=== PATIENT | female | born 1930 | race Two or more races ===

== ENCOUNTER 2020-06-05 12:52 | Inpatient (IN) | payer OTHER ==
[2020-06-05 13:53] LABS: HEMOGLOBIN 11.4 GM/dl (10.7-15.3); MCH 28.4 pg (25.7-33.7); RBC 4.03 M/mm3 (3.60-5.2); WHITE BLOOD COUNT 7.6 K/mm3 (4.0-10.8)
[2020-06-05 13:56] LABS: BASO % 3.6 % (0-2.0); EOS % 1.8 % (0-4.5); HEMATOCRIT 36.2 % (32.4-45.2); LYMPH % 15.2 % (8-40); MCHC 31.5 g/dl (32.0-36.0); MEAN CELL VOLUME 89.9 fl (80-96); MEAN PLT VOLUME 8.7 fl (7.5-11.1); MONO % 7.8 % (3.8-10.2); NEUT % 71.6 % (42.8-82.8); PLATELET COUNT 245 K/MM3 (134-434); RDW 17.6 % (11.6-15.6)
[2020-06-05 14:10] LABS: ALBUMIN 3.7 g/dl (3.4-5.0); BILIRUBIN,TOTAL 0.4 mg/dl (0.2-1); CALCIUM 9.5 mg/dl (8.5-10); CREATININE 1.5 mg/dl (0.55-1.3); POTASSIUM 4.1 mmol/L (3.5-5.1); TOT PROT 6.3 g/dl (6.4-8.2)
--- NOTE | 2020-06-05 14:49 | PDOC ---
History of Present Illness - General Chief Complaint: Shortness of Breath Stated Complaint: SOB Time Seen by Provider: 06/05/20 12:54 History Source: Patient Exam Limitations: No Limitations - History of Present Illness Initial Comments: 06/05/20 14:44 89 yo F with h/o chf, htn hld prior clots on eliquis here wiht c/o sob and plueritic pain . pain is sharp, right sided, worse wtih deep breathing. has been feeling sob for 2 days. no cough no f/c no new leg swelling or pain. no rash. 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 no myalgia. no other complaints. no known covid exposure or h/o covid 06/05/20 14:45 Past History - Medical History Allergies/Adverse Reactions: Allergies Allergy/AdvReac Type Severity Reaction Status Date / Time Penicillins Allergy Intermediate Difficulty Verified 06/05/20 12:57 Breathing Home Medications: Ambulatory Orders Allopurinol [Zyloprim -] 100 mg PO DAILY 06/05/20 Apixaban [Eliquis] 5 mg PO BID 06/05/20 Ezetimibe 10 mg PO DAILY 06/05/20 Furosemide 20 mg PO DAILY 06/05/20 Levothyroxine [Synthroid -] 25 mcg PO DAILY 06/05/20 Linagliptin [Tradjenta] 5 mg PO DAILY 06/05/20 Losartan Potassium 25 mg PO DAILY 06/05/20 Nebivolol HCl [Bystolic] 20 mg PO BID 06/05/20 Pantoprazole Sodium [Protonix -] 40 mg PO DAILY 06/05/20 Simvastatin 20 mg PO DAILY 06/05/20 Timolol Maleate 0.5% Gfs [Timoptic Xe 0.5%] 5 ml OP BID 06/05/20 COPD: No - Reproductive History Is Patient Now?: No - Psycho-Social/Smoking History Smoking History: Never smoked Have you smoked in the past 12 months: No Information on smoking cessation initiated: No - Substance Abuse Hx (Audit-C & DAST Scrn) How often the patient has a drink containing alcohol: Never Score: In Men: 4 or > Positive; In Women: 3 or > Positive: 0 Screen Result (Pos requires Nsg. Audit-10AR): Negative In the last yr the pt used illegal drug/Rx for NonMed reason: No Score: Yes response is considered Positive: 0 Screen Result (Positive result requires Nsg. DAST-10): Negative Review of Systems - Review of Systems Constitutional: No: Chills, Fever HEENTM: No: Eye Pain Respiratory: Yes: Shortness of Breath. No: Cough, Orthopnea Cardiac (ROS): Yes: Chest Pain ABD/GI: No: Nausea, Poor Fluid Intake : No: Burning, Dysuria, Discharge Musculoskeletal: No: Back Pain, Joint Pain, Muscle Weakness Integumentary: No: Bruising, Erythema Neurological: No: Headache, Paresthesia Hematologic/Lymphatic: Yes: Blood Clots All Other Systems: Reviewed and Negative *Physical Exam - Vital Signs Last Vital Signs Temp Pulse Resp BP Pulse Ox 99.1 F 64 20 113/68 96 06/05/20 12:53 06/05/20 14:29 06/05/20 14:29 06/05/20 14:29 06/05/20 14:29 - Physical Exam 06/05/20 14:47 awake alert lungs with crackles at bases. normal effort. pulse ox 94 - 98% RA. no retractions. heart irreg , no mrg abd soft nt nd ext wwp. no noted peripheral edema. 2+ dp/ pt pulses bilat. nuero alert oriented x 3. Heart Score/ECG Review #1 General ECG Interpretation: Normal Rate, Normal Intervals, No acute ischemic changes Compared to previous ECG there are: Other (pt with aflutter, no st elevation or depression. left axis. afib. TWI v4 - V6., I, AVL no old ekg) ED Treatment Course - LABORATORY CBC & Chemistry Diagram: 06/05/20 13:44 06/05/20 13:44 - ADDITIONAL ORDERS Additional order review: Laboratory Results 06/05/20 06/05/20 13:44 13:44 Sodium 140 Potassium 4.1 Chloride 102 Carbon Dioxide 25 Anion Gap 13 BUN 22.0 H Creatinine 1.5 H Est GFR (CKD-EPI)AfAm 35.93 Est GFR (CKD-EPI)NonAf 31.00 Random Glucose 135 H Calcium 9.5 Total Bilirubin 0.4 AST 21 ALT 11 L Alkaline Phosphatase 95 Troponin I < 0.03 Total Protein 6.3 L Albumin 3.7 06/05/20 13:44 RBC 4.03 MCV 89.9 MCHC 31.5 L RDW 17.6 H MPV 8.7 Neutrophils % 71.6 Lymphocytes % 15.2 Monocytes % 7.8 Eosinophils % 1.8 Basophils % 3.6 H - RADIOLOGY Radiology Studies Ordered: Category Date Time Status CHEST CTA [CT] Stat CT Scan 06/05/20 14:43 Ordered CXRPORT [CHEST X-RAY PORTABLE*] [RAD] Stat Radiology 06/05/20 13:21 Taken Medical Decision Making - Medical Decision Making 06/05/20 14:48 89 yo F wtih ih/o chf prior clots here with c/o sob. exertional worse with lying flat and plueritic pain. differential pe acs, chf pna, covid. plna covid swab, cxr cta chest labs trop ekg cxr wtih mild pulm vasc congestion. no effusion. no infiltrate. labs normal. ct pending. ekg with atrial fibrillation. 06/05/20 16:24 labs unremarkable. BNp 2200. cta negative for PE. no plueral effusion or pna. chornic lung disease. will admit pt diuresess. cp r/o acs. 06/05/20 16:[address] Dee, who states she has known afib, is on eliquis. and h/o chf. 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 will follow up with pt when she leaves the hosptial. Discharge - Discharge Information Problems reviewed: Yes Clinical Impression/Diagnosis: CHF (congestive heart failure), Chest pain, Flutter-fibrillation - Admission Yes - Follow up/Referral - Patient Discharge Instructions - Post Discharge Activity
[2020-06-05 14:53] LABS: N-TERMINAL BNP 2200.3 pg/ml (5-450)
[2020-06-05] MEDS ORDERED: ASPIRIN 81 MG CHEWABLE TABLETS PO ONE (16:43)
[2020-06-05] MEDS ORDERED: FUROSEMIDE 40 MG/4 ML INJECTABLE VIAL IVPUSH ONE (16:43)
[2020-06-05] MEDS ORDERED: ASPIRIN 81 MG CHEWABLE TABLETS ONE (16:49)
[2020-06-05] MEDS ORDERED: FUROSEMIDE 40 MG/4 ML INJECTABLE VIAL ONE (16:50)
--- NOTE | 2020-06-05 16:50 | CON.CARD ---
Consult Consult Specialty:: Cardiology Referred by:: Emergency Medicine Reason for Consultation:: Afib, dyspnea - History of Present Illness Chief Complaint: Chest pain, dyspnea History of Present Illness: 89 yo F with h/o chf, htn hld afib on eliquis here with c/o sob and right-sided pleuritic chest pain, dyspnea on exertion, orthopnea, denies PND, LE edema. 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 [place] known covid exposure or h/o covid, BNP elevated started diuresis. - History Source History Provided By: Patient Limitations to Obtaining History: No Limitations - Past Medical History Cardio/Vascular: Yes: AFIB, CHF, HTN, Hyperlipdemia ...: No - Smoking History Smoking history: Never smoked Have you smoked in the past 12 months: No Home Medications - Allergies Allergies/Adverse Reactions: Allergies Allergy/AdvReac Type Severity Reaction Status Date / Time Penicillins Allergy Intermediate Difficulty Verified 06/05/20 12:57 Breathing - Home Medications Home Medications: Ambulatory Orders Allopurinol [Zyloprim -] 100 mg PO DAILY 06/05/20 Apixaban [Eliquis] 5 mg PO BID 06/05/20 Ezetimibe 10 mg PO DAILY 06/05/20 Furosemide 20 mg PO DAILY 06/05/20 Levothyroxine [Synthroid -] 25 mcg PO DAILY 06/05/20 Linagliptin [Tradjenta] 5 mg PO DAILY 06/05/20 Losartan Potassium 25 mg PO DAILY 06/05/20 Nebivolol HCl [Bystolic] 20 mg PO BID 06/05/20 Pantoprazole Sodium [Protonix -] 40 mg PO DAILY 06/05/20 Simvastatin 20 mg PO DAILY 06/05/20 Timolol Maleate 0.5% Gfs [Timoptic Xe 0.5%] 5 ml OP BID 06/05/20 Review of Systems - Review of Systems Cardiovascular: reports: Chest Pain Respiratory: reports: Orthopnea, SOB, SOB on Exertion Vital Signs: Vital Signs Temperature 98.3 F 06/05/20 16:27 Pulse Rate 70 06/05/20 16:27 Respiratory Rate 20 06/05/20 16:27 Blood Pressure 117/71 06/05/20 16:27 O2 Sat by Pulse Oximetry (%) 98 06/05/20 16:27 Constitutional: Yes: No Distress, Calm, Thin Neck: Yes: Supple Respiratory: Yes: Regular, Diminished, SOB, SOB on Exertion Gastrointestinal: Yes: Normal Bowel Sounds, Soft Cardiovascular: Yes: Regular Rate and Rhythm JVD: No Carotid Bruit: No Heart Sounds: Yes: S1, S2 Murmur: Yes: Systolic Murmur, Grade 1 Edema: No - Other Data Labs, Other Data: CBC, BMP 06/05/20 13:44 06/05/20 13:44 Troponin, BNP 06/05/20 06/05/20 13:44 13:44 Troponin I < 0.03 B-Natriuretic Peptide 2200.3 H Troponin, BNP 06/05/20 06/05/20 13:44 13:44 Troponin I < 0.03 B-Natriuretic Peptide 2200.3 H Afib @ 83 LAD, IVCD Imaging - Results Chest X-ray: Report Reviewed (Mild CHF w/o effusions) Cat Scan: Report Reviewed Problem List - Problems (1) Atrial fibrillation Code(s): I48.91 - UNSPECIFIED ATRIAL FIBRILLATION Qualifiers: Atrial fibrillation type: unspecified chronic Qualified Code(s): I48.20 - Chronic atrial fibrillation, unspecified; I48.2 - Chronic atrial fibrillation (2) Hyperlipidemia associated with type 2 diabetes mellitus Code(s): E11.69 - TYPE 2 DIABETES MELLITUS WITH OTHER SPECIFIED COMPLICATION; E78.5 - HYPERLIPIDEMIA, UNSPECIFIED (3) Hypertensive heart disease Code(s): I11.9 - HYPERTENSIVE HEART DISEASE WITHOUT HEART FAILURE Qualifiers: Heart failure presence: with heart failure Heart failure type: diastolic Heart failure chronicity: acute on chronic Qualified Code(s): I11.0 - Hypertensive heart disease with heart failure; I50.33 - Acute on chronic diastolic (congestive) heart failure (4) Hypothyroidism Code(s): E03.9 - HYPOTHYROIDISM, UNSPECIFIED Qualifiers: Hypothyroidism type: unspecified Qualified Code(s): E03.9 - Hypothyroidism, unspecified (5) Chest pain Code(s): R07.9 - CHEST PAIN, UNSPECIFIED Qualifiers: Chest pain type: pleurodynia Qualified Code(s): R07.81 - Pleurodynia (6) Type 2 diabetes mellitus Code(s): E11.9 - TYPE 2 DIABETES MELLITUS WITHOUT COMPLICATIONS Qualifiers: Diabetes mellitus intermediate project manager insulin use: without intermediate project manager use Diabetes mellitus complication status: with kidney complications Diabetes mellitus complication detail: with chronic kidney disease Chronic kidney disease stage: stage 3 (moderate) Qualified Code(s): E11.22 - Type 2 diabetes mellitus with diabetic chronic kidney disease; N18.3 - Chronic kidney disease, stage 3 (moderate) (7) CKD (chronic kidney disease) Code(s): N18.9 - CHRONIC KIDNEY DISEASE, UNSPECIFIED Qualifiers: Chronic kidney disease stage: stage 3 (moderate) Qualified Code(s): N18.3 - Chronic kidney disease, stage 3 (moderate) Assessment/Plan 06/05/2020 Chest CTA: No PE, chronic lung disease w/o CHF or effusions 1. Acute on chronic diastolic heart failure 2. Persistent afib on Eliquis 3. Hypertensive heart disease with failure 4. Hypothyroidism 5. Hyperlipidemia 6. Type 2 DM 7. CKD likely P:1. IV diuresis with monitor diuretic response, renal function and electrolytes 2. Echocardiogram to assess ventricular and valve fxn, check TSH, lipid panel, Ha1c 3. Continue Eliquis 5 bid, Zetia 10 qd, Zocor 20 qhs, losartan 25 qd, Bystolic 20 bid, consider Jardiance pending Ha1c 4. Further CV evaluation as outpatient . Thank you for consultative opportunity
[2020-06-05] MEDS ORDERED: FUROSEMIDE 40 MG/4 ML INJECTABLE VIAL IVPUSH SCH (17:20)
[2020-06-05 18:14] VITALS: BMI 25.7
[2020-06-05] MEDS: EZETIMIBE 10 MG TABLET (FP) PO SCH (18:27)
[2020-06-05] MEDS: ATORVASTATIN CA 10 MG TABLET (FP) PO SCH (18:28)
[2020-06-05] MEDS ORDERED: TIMOLOL MALEATE 0.5% GFS OPHTHALMIC SOLN 5 ML BOTTLE OD SCH (22:00)
--- NOTE | 2020-06-05 22:04 | HP ---
CHIEF COMPLAINT: shortness of breath and right sided chest pain PCP: Dr. Dee [phone] HISTORY OF PRESENT ILLNESS: 89 year old female with a past medical history of diastolic congestive heart failure, hypertension, hyperlipidemia, prior history of blood clots hypothyroidism, type II DM, persistent atrial fibrillation (on eliquis) and CKD who presents with symptoms of shortness of breath and right sided pleuritic pain . Pain was described as sharp, right sided, and worse with deep breathing. She reported she has been feeling shortness of breath for the past 2 days.She reported orthopnea. She denied cough, fever, chills, malaise or leg pain or swelling. She recently moved from [place] last month. She has had no known COVID exposure or history of COVID. ER course notable for: Elevated BNP(2200)/ Acute Diastolic Congestive Heart Failure Exacerbation -seen by Cardiology and started on IV lasix and diuresing well CXR with mild pulmonary vascular congestion, no effusion, no infiltrate. Chest CTA: no pulmonary embolism, chronic lung disease w/o CHF or effusions Recent Travel: yes PAST MEDICAL HISTORY: diastolic congestive heart failure hypertensive heart disease hyperlipidemia prior history of blood clots hypothyroidism type II DM persistent atrial fibrillation CKD FAMILY HISTORY noncontributory PAST SURGICAL HISTORY: none Social History: Smoking:no Alcohol:no Drugs:no Allergies Penicillins Allergy (Intermediate, Verified 06/05/20 12:57) Difficulty Breathing HOME MEDICATIONS: Home Medications Medication Instructions Recorded Allopurinol [Zyloprim -] 100 mg PO DAILY 06/05/20 Apixaban [Eliquis] 5 mg PO BID 06/05/20 Ezetimibe 10 mg PO DAILY 06/05/20 Furosemide 20 mg PO DAILY 06/05/20 Levothyroxine [Synthroid -] 25 mcg PO DAILY 06/05/20 Linagliptin [Tradjenta] 5 mg PO DAILY 06/05/20 Losartan Potassium 25 mg PO DAILY 06/05/20 Nebivolol HCl [Bystolic] 20 mg PO BID 06/05/20 Pantoprazole Sodium [Protonix -] 40 mg PO DAILY 06/05/20 Simvastatin 20 mg PO DAILY 06/05/20 Timolol Maleate 0.5% Gfs [Timoptic 5 ml OP BID 06/05/20 Xe 0.5%] REVIEW OF SYSTEMS CONSTITUTIONAL: Absent: fever, chills, diaphoresis, generalized weakness, malaise, loss of appetite, weight change HEENT: Absent: rhinorrhea, nasal congestion, throat pain, throat swelling, difficulty swallowing, mouth swelling, ear pain, eye pain, visual changes CARDIOVASCULAR: Absent: chest pain, syncope, palpitations, irregular heart rate, lightheadedness, peripheral edema RESPIRATORY: Absent: right sided pleuritic pain, cough, shortness of breath, dyspnea with exertion, orthopnea, wheezing, stridor, hemoptysis GASTROINTESTINAL: Absent: abdominal pain, abdominal distension, nausea, vomiting, diarrhea, constipation, melena, hematochezia GENITOURINARY: Absent: dysuria, frequency, urgency, hesitancy, hematuria, flank pain, genital pain MUSCULOSKELETAL: Absent: myalgia, arthralgia, joint swelling, back pain, neck pain SKIN: Absent: rash, itching, pallor HEMATOLOGIC/IMMUNOLOGIC: Absent: easy bleeding, easy bruising, lymphadenopathy, frequent infections ENDOCRINE: Absent: unexplained weight gain, unexplained weight loss, heat intolerance, cold intolerance NEUROLOGIC: Absent: headache, focal weakness or paresthesias, dizziness, unsteady gait, seizure, mental status changes, bladder or bowel incontinence PSYCHIATRIC: Absent: anxiety, depression, suicidal or homicidal ideation, hallucinations. PHYSICAL EXAMINATION Vital Signs - 24 hr 06/05/20 06/05/20 06/05/20 12:53 14:29 16:27 Temperature 99.1 F 98.3 F Pulse Rate 87 Pulse Rate [ 64 70 Right] Respiratory 20 20 20 Rate Blood Pressure 119/84 Blood Pressure 113/68 117/71 [Left Arm] O2 Sat by Pulse 96 96 98 Oximetry (%) 06/05/20 18:04 Temperature 97.5 F L Pulse Rate 65 Pulse Rate [ Right] Respiratory 20 Rate Blood Pressure 129/54 L Blood Pressure [Left Arm] O2 Sat by Pulse 98 Oximetry (%) General no acute distress Vital sign reviewed afebrile Neuro no focal deficits awake alert oriented X3 Neck no JVD Lungs CTA nonlabored breathing effort no use of accessory muscles Heart s1s2 rate irregular Abdomen soft nontender Extremities warm to touch no pitting edema Mood calm Laboratory Results - last 24 hr 06/05/20 06/05/20 06/05/20 13:44 13:44 13:44 WBC 7.6 RBC 4.03 Hgb 11.4 Hct 36.2 MCV 89.9 MCH 28.4 MCHC 31.5 L RDW 17.6 H Plt Count 245 MPV 8.7 Absolute Neuts (auto) 5.4 Neutrophils % 71.6 Lymphocytes % 15.2 Monocytes % 7.8 Eosinophils % 1.8 Basophils % 3.6 H Sodium 140 Potassium 4.1 Chloride 102 Carbon Dioxide 25 Anion Gap 13 BUN 22.0 H Creatinine 1.5 H Est GFR (CKD-EPI)AfAm 35.93 Est GFR (CKD-EPI)NonAf 31.00 Random Glucose 135 H Calcium 9.5 Total Bilirubin 0.4 AST 21 ALT 11 L Alkaline Phosphatase 95 Creatine Kinase Troponin I < 0.03 B-Natriuretic Peptide 2200.3 H Total Protein 6.3 L Albumin 3.7 Urine Color Urine Appearance Urine pH Urine Protein Urine Glucose (UA) Urine Ketones Urine Blood Urine Nitrite Urine Bilirubin Urine Urobilinogen Ur Leukocyte Esterase 06/05/20 06/05/20 06/05/20 16:55 20:00 20:00 WBC RBC Hgb Hct MCV MCH MCHC RDW Plt Count MPV Absolute Neuts (auto) Neutrophils % Lymphocytes % Monocytes % Eosinophils % Basophils % Sodium Potassium Chloride Carbon Dioxide Anion Gap BUN Creatinine Est GFR (CKD-EPI)AfAm Est GFR (CKD-EPI)NonAf Random Glucose Calcium Total Bilirubin AST ALT Alkaline Phosphatase Creatine Kinase 37 Troponin I < 0.03 B-Natriuretic Peptide Total Protein Albumin Urine Color Yellow Urine Appearance Clear Urine pH 7.0 Urine Protein Negative Urine Glucose (UA) Negative Urine Ketones Negative Urine Blood Negative Urine Nitrite Negative Urine Bilirubin Negative Urine Urobilinogen 0.2 Ur Leukocyte Esterase Negative ASSESSMENT/PLAN: In summary Mrs. Garcia is an 89 year old female with a past medical history of diastolic congestive heart failure, hypertension, hyperlipidemia, prior history of blood clots, hypothyroidism, type II DM, persistent atrial fibrillation (on eliquis) and CKD who presented with shortness of breath associated with orthopnea and right sided pleuritic pain. CTA of chest excluded pulmonary embolism. She was found to have an elevated BNP which is consistent with an acute on chronic diastolic congestive heart failure exacerbation. She is being admitted to telemetry for further cardiac and medical management. 1. Acute on Chronic Diastolic Congestive Heart Failure Exacerbation symptomatic BNP 2200, troponin x 2 negative, CTA of chest with no PE and + cardiomegaly evaluated by Cardiology - Dr. Mcdermott received IV lasix 20 mg and continued on IV lasix 20mg daily and she is diuresing well(takes oral lasix 20 mg daily at home), will increase to IV lasix 40mg daily monitor strict I&O's monitor renal studies and electrolytes closely pending echocardiogram to evaluate LVEF and valvular anatomy 2. Hypertension controlled c/w losartan and biastolic 3. Hyperlipidemia c/w simvastatin pending lipid panel in am 4. Atrial Fibrillation rate controlled c/w beta birgit c/w eliquis 5 mg twice daily 5. Type II Diabetes Mellitus blood glucose monitoring before meals and at bedtime hold tradjenta insulin as per sliding scale consider Jardiance as recs per Cardiology, pending Hgba1c 6. Hypothyroidism c/w synthroid pending TSH 7. CKD creatinine 1.5(no prior recs to compare baseline) continue to monitor closely with IV diuresis 8. R/O COVID had recent travel follow up on COVID test maintain strict airborne and contact isolation precautions maintain oxygen saturation >90% FEN avoid IVF BMP daily, replete electrolytes as needed low sodium, ADA diet DVT Prophlaxis c/w systemic anticoagulation Family Medical History Family History: Unremarkable Visit type - Medication Review Med list reviewed for High Risk Meds patients 65 and older: Yes - Emergency Visit Emergency Visit: Yes ED Registration Date: 06/05/20 Care time: The patient presented to the Emergency Department on the above date and was hospitalized for further evaluation of their emergent condition. - New Patient This patient is new to me today: Yes Date on this admission: 06/06/20 - Critical Care Critical Care patient: No
[2020-06-05] MEDS: APIXABAN 5 MG TABLET PO SCH (22:10)
[2020-06-05] MEDS: INSULIN SLIDING SCALE (NOVOLOG) 1 VIAL SQ SCH (22:14)
[2020-06-05] MEDS: NEBIVOLOL 10 MG TABLET (FP) PO SCH (22:15)
[2020-06-06] MEDS: INSULIN SLIDING SCALE (NOVOLOG) 1 VIAL SQ SCH ×4 (06:46→21:02)
[2020-06-06] MEDS: LEVOTHYROXINE NA 25 MCG TABLET (FP) PO SCH (06:46)
--- NOTE | 2020-06-06 08:59 | PN ---
Physical Exam: SUBJECTIVE: Patient seen and examined at bedside, reports MARISCAL, and constipation,denies cp,palpitations, cough,abdominal pain, N/V/D or urinary symptoms. OBJECTIVE: Vital Signs Period Temp Pulse Resp BP Sys/Dawn Pulse Ox Last 24 Hr 97.5 F-99.1 F 62-87 20-20 93-129/54-84 96-99 GENERAL: The patient is awake, alert, and fully oriented, in no acute distress. HEAD: Normal with no signs of trauma. EYES: PERRL, extraocular movements intact, sclera anicteric, conjunctiva clear. No ptosis. ENT: Ears normal, nares patent, oropharynx clear without exudates, moist mucous membranes. NECK: Trachea midline, full range of motion, supple. LUNGS: Breath sounds equal, clear to auscultation bilaterally, no wheezes, no crackles, no accessory muscle use. HEART: Regular rate and rhythm, S1, S2 without murmur, rub or gallop. ABDOMEN: Soft, nontender, nondistended, normoactive bowel sounds, no guarding, no rebound, no hepatosplenomegaly, no masses. EXTREMITIES: 2+ pulses, warm, well-perfused, no edema. NEUROLOGICAL: Cranial nerves II through XII grossly intact. Normal speech, gait not observed. PSYCH: Normal mood, normal affect. SKIN: Warm, dry, normal turgor, no rashes or lesions noted Laboratory Results - last 24 hr 06/05/20 06/05/20 06/05/20 13:44 13:44 13:44 WBC 7.6 RBC 4.03 Hgb 11.4 Hct 36.2 MCV 89.9 MCH 28.4 MCHC 31.5 L RDW 17.6 H Plt Count 245 MPV 8.7 Absolute Neuts (auto) 5.4 Neutrophils % 71.6 Lymphocytes % 15.2 Monocytes % 7.8 Eosinophils % 1.8 Basophils % 3.6 H Sodium 140 Potassium 4.1 Chloride 102 Carbon Dioxide 25 Anion Gap 13 BUN 22.0 H Creatinine 1.5 H Est GFR (CKD-EPI)AfAm 35.93 Est GFR (CKD-EPI)NonAf 31.00 POC Glucometer Random Glucose 135 H Calcium 9.5 Total Bilirubin 0.4 AST 21 ALT 11 L Alkaline Phosphatase 95 Creatine Kinase Troponin I < 0.03 B-Natriuretic Peptide 2200.3 H Total Protein 6.3 L Albumin 3.7 Urine Color Urine Appearance Urine pH Urine Protein Urine Glucose (UA) Urine Ketones Urine Blood Urine Nitrite Urine Bilirubin Urine Urobilinogen Ur Leukocyte Esterase COVID-19 ([facility]NA) 06/05/20 06/05/20 06/05/20 13:44 16:55 20:00 WBC RBC Hgb Hct MCV MCH MCHC RDW Plt Count MPV Absolute Neuts (auto) Neutrophils % Lymphocytes % Monocytes % Eosinophils % Basophils % Sodium Potassium Chloride Carbon Dioxide Anion Gap BUN Creatinine Est GFR (CKD-EPI)AfAm Est GFR (CKD-EPI)NonAf POC Glucometer Random Glucose Calcium Total Bilirubin AST ALT Alkaline Phosphatase Creatine Kinase Troponin I < 0.03 B-Natriuretic Peptide Total Protein Albumin Urine Color Yellow Urine Appearance Clear Urine pH 7.0 Urine Protein Negative Urine Glucose (UA) Negative Urine Ketones Negative Urine Blood Negative Urine Nitrite Negative Urine Bilirubin Negative Urine Urobilinogen 0.2 Ur Leukocyte Esterase Negative COVID-19 (ANNA) Not detected 06/05/20 06/05/20 06/06/20 20:00 22:09 06:37 WBC RBC Hgb Hct MCV MCH MCHC RDW Plt Count MPV Absolute Neuts (auto) Neutrophils % Lymphocytes % Monocytes % Eosinophils % Basophils % Sodium Potassium Chloride Carbon Dioxide Anion Gap BUN Creatinine Est GFR (CKD-EPI)AfAm Est GFR (CKD-EPI)NonAf POC Glucometer 151 99 Random Glucose Calcium Total Bilirubin AST ALT Alkaline Phosphatase Creatine Kinase 37 Troponin I B-Natriuretic Peptide Total Protein Albumin Urine Color Urine Appearance Urine pH Urine Protein Urine Glucose (UA) Urine Ketones Urine Blood Urine Nitrite Urine Bilirubin Urine Urobilinogen Ur Leukocyte Esterase COVID-19 ([facility]NA) Active Medications Generic Name Dose Route Start Last Admin Trade Name Freq PRN Reason Stop Dose Admin Allopurinol 100 mg 06/06/20 10:00 Zyloprim - PO DAILY [facility] Apixaban 5 mg 06/05/20 22:00 06/05/20 22:10 Eliquis - PO 5 mg BID [facility] Administration Atorvastatin Calcium 10 mg 06/05/20 17:30 06/05/20 18:28 Lipitor - PO 10 mg DAILY [facility] Administration Ezetimibe 10 mg 06/05/20 17:30 06/05/20 18:27 Zetia - PO 10 mg DAILY [facility] Administration Furosemide 40 mg 06/06/20 10:00 Lasix Injection - IVPUSH DAILY [facility] Insulin Aspart 1 vial 06/05/20 22:00 06/06/20 06:46 Novolog Vial Sliding Scale - SQ Not Given ACHS [facility] Protocol Levothyroxine Sodium 25 mcg 06/06/20 07:00 06/06/20 06:46 Synthroid - PO 25 mcg AM [facility] Administration Losartan Potassium 25 mg 06/06/20 10:00 Cozaar - PO DAILY [facility] Nebivolol 20 mg 06/05/20 22:00 06/05/20 22:15 Bystolic - PO Not Given BID [facility] Pantoprazole Sodium 40 mg 06/06/20 10:00 Protonix - PO DAILY [facility] Timolol Maleate 74.9696 drop 06/05/20 22:00 Timoptic Xe 0.5% OD BID [facility] * Imaging CXR:Large heart , Rt shoulder replacement, cristhian cute chest pathology CTA of chest : No evidence of PE,CM with chronic lung disease, no acute pathology ASSESSMENT/PLAN: 89 year old female with a past medical history of diastolic congestive heart failure, hypertension, hyperlipidemia,prior history of blood clots, hypothyroidism, type II DM, persistent atrial fibrillation (on eliquis),gout and CKD who presented with shortness of breath associated with orthopnea and right sided pleuritic pain. PCP: Dr. Dee [phone] *Acute on Chronic Diastolic Congestive Heart Failure Exacerbation -CTA : PE ruled out , CM,no acute lung pathology -BNP 2200, -troponin x 2 negative, - Tele monitoring -cardiology Velvet Mcdermott following - Echo in AM LVEF and valvular anatomy - will cont on IV LAsix 40mg daily ( takes 20mg daily), and ARB - daily weight and I&O monitoring -monitor renal studies and electrolytes closely pending echocardiogram to evaluate LVEF and valvular anatomy *Hypertension - BP on the low side - will cont on Losartartan and Bystolic with holding parameters - will monitor BP closely * Hyperlipidemia -c/w simvastatin - will f/u on fasting lipids *Atrial Fibrillation -rate controlled -will cont on beta birgit and Eliquis *Type II Diabetes Mellitus -FS AC& HS - Insulin sliding scale -hold Tradjenta -consider Jardiance as recs per Cardiology, pending Hgba1c *Hypothyroidism -c/w synthroid -pending TSH *Hx of CKD -Cre 1.4 unknown baseline - will cont on ARB/ diuretics -will cont to monitor renal functions * Gout on Allopurinol * R/O COVID - Covid test - not detected * Constipation - added laxatives *F/E/N avoid IVF BMP daily, replete electrolytes as needed low sodium, ADA diet DVT Prophlaxis - on Eliquis GI prophylaxis: PPI Visit type - Emergency Visit Emergency Visit: Yes ED Registration Date: 06/05/20 Care time: The patient presented to the Emergency Department on the above date and was hospitalized for further evaluation of their emergent condition. - New Patient This patient is new to me today: Yes Date on this admission: 06/06/20 - Critical Care Critical Care patient: No - Discharge Referral Referred to [facility] Med P.C.: No - Medication Review Med list reviewed for High Risk Meds patients 65 and older: Yes
[2020-06-06 09:14] LABS: BASO % 0.2 % (0-2.0); EOS % 4.1 % (0-4.5); HEMATOCRIT 36.8 % (32.4-45.2); HEMOGLOBIN 11.6 GM/dl (10.7-15.3); LYMPH % 21.9 % (8-40); MCH 28.3 pg (25.7-33.7); MCHC 31.4 g/dl (32.0-36.0); MEAN CELL VOLUME 89.9 fl (80-96); MONO % 10.7 % (3.8-10.2); NEUT % 63.1 % (42.8-82.8); PLATELET COUNT 224 K/MM3 (134-434); RBC 4.09 M/mm3 (3.60-5.2); RDW 17.6 % (11.6-15.6); WHITE BLOOD COUNT 5.8 K/mm3 (4.0-10.8)
[2020-06-06 09:38] LABS: CALCIUM 9.5 mg/dl (8.5-10); CREATININE 1.6 mg/dl (0.55-1.3); MAGNESIUM 2.2 mg/dL (1.8-2.4); POTASSIUM 3.9 mmol/L (3.5-5.1)
[2020-06-06] MEDS: DOCUSATE SODIUM 100 MG CAPSULE (FP) PO SCH ×2 (09:46→21:05)
[2020-06-06] MEDS: ATORVASTATIN CA 10 MG TABLET (FP) PO SCH (09:46)
[2020-06-06] MEDS: LOSARTAN POTASSIUM 25 MG TABLET PO SCH (09:46)
[2020-06-06] MEDS: PANTOPRAZOLE 20 MG TABLET PO SCH (09:46)
[2020-06-06] MEDS: NEBIVOLOL 10 MG TABLET (FP) PO SCH ×2 (09:46→21:02)
[2020-06-06] MEDS: APIXABAN 5 MG TABLET PO SCH ×2 (09:46→21:01)
[2020-06-06] MEDS: EZETIMIBE 10 MG TABLET (FP) PO SCH (09:46)
[2020-06-06] MEDS: POLYETHYLENE GLYCOL 3350 119 GM BTL PO SCH (09:46)
[2020-06-06] MEDS: ALLOPURINOL 100 MG TABLET (FP) PO SCH (09:46)
[2020-06-06] MEDS ORDERED: FUROSEMIDE 40 MG/4 ML INJECTABLE VIAL IVPUSH SCH (10:00)
--- NOTE | 2020-06-06 11:41 | PN ---
Progress Note, Physician History of Present Illness: Chest pain, dyspnea on exertion, orthopnea improving with diuresis. - Current Medication List Current Medications: Active Medications Allopurinol (Zyloprim -) 100 mg PO DAILY [facility] Last Admin: 06/06/20 09:46 Dose: 100 mg Documented by: Apixaban (Eliquis -) 5 mg PO BID [facility] Last Admin: 06/06/20 09:46 Dose: 5 mg Documented by: Atorvastatin Calcium (Lipitor -) 10 mg PO DAILY [facility] Last Admin: 06/06/20 09:46 Dose: 10 mg Documented by: Docusate Sodium (Colace -) 100 mg PO BID [facility] Last Admin: 06/06/20 09:46 Dose: 100 mg Documented by: Ezetimibe (Zetia -) 10 mg PO DAILY [facility] Last Admin: 06/06/20 09:46 Dose: 10 mg Documented by: Furosemide (Lasix Injection -) 40 mg IVPUSH DAILY [facility] Last Admin: 06/06/20 09:46 Dose: 40 mg Documented by: Insulin Aspart (Novolog Vial Sliding Scale -) 1 vial SQ [facility]; Protocol Last Admin: 06/06/20 06:46 Dose: Not Given Documented by: Levothyroxine Sodium (Synthroid -) 25 mcg PO AM [facility] Last Admin: 06/06/20 06:46 Dose: 25 mcg Documented by: Losartan Potassium (Cozaar -) 25 mg PO DAILY [facility] Last Admin: 06/06/20 09:46 Dose: 25 mg Documented by: Nebivolol (Bystolic -) 20 mg PO BID [facility] Last Admin: 06/06/20 09:46 Dose: 20 mg Documented by: Pantoprazole Sodium (Protonix -) 40 mg PO DAILY [facility] Last Admin: 06/06/20 09:46 Dose: 40 mg Documented by: Polyethylene Glycol (Miralax (For Daily Use) -) 17 gm PO DAILY [facility] Last Admin: 06/06/20 09:46 Dose: 17 gm Documented by: Timolol Maleate (Timoptic Xe 0.5%) 74.9625 drop OD BID [facility] - Objective Vital Signs: Vital Signs Temperature 97.7 F 06/06/20 06:00 Pulse Rate 63 06/06/20 06:00 Respiratory Rate 20 06/06/20 06:00 Blood Pressure 106/65 06/06/20 06:00 O2 Sat by Pulse Oximetry (%) 99 06/06/20 06:00 Constitutional: Yes: No Distress, Calm Neck: Yes: Supple Cardiovascular: Yes: Pulse Irregular Respiratory: Yes: Regular, CTA Bilaterally Gastrointestinal: Yes: Normal Bowel Sounds, Soft Edema: No Labs: CBC, BMP 06/06/20 06:30 06/06/20 06:30 - ....Imaging EKG: Report Reviewed (Tele: Af) Problem List - Problems (1) Atrial fibrillation Code(s): I48.91 - UNSPECIFIED ATRIAL FIBRILLATION Qualifiers: Atrial fibrillation type: unspecified chronic Qualified Code(s): I48.20 - Chronic atrial fibrillation, unspecified; I48.2 - Chronic atrial fibrillation (2) Hyperlipidemia associated with type 2 diabetes mellitus Code(s): E11.69 - TYPE 2 DIABETES MELLITUS WITH OTHER SPECIFIED COMPLICATION; E78.5 - HYPERLIPIDEMIA, UNSPECIFIED (3) Hypertensive heart disease Code(s): I11.9 - HYPERTENSIVE HEART DISEASE WITHOUT HEART FAILURE Qualifiers: Heart failure presence: with heart failure Heart failure type: diastolic Heart failure chronicity: acute on chronic Qualified Code(s): I11.0 - Hypertensive heart disease with heart failure; I50.33 - Acute on chronic diastolic (congestive) heart failure (4) Hypothyroidism Code(s): E03.9 - HYPOTHYROIDISM, UNSPECIFIED Qualifiers: Hypothyroidism type: unspecified Qualified Code(s): E03.9 - Hypothyroidism, unspecified (5) Chest pain Code(s): R07.9 - CHEST PAIN, UNSPECIFIED Qualifiers: Chest pain type: pleurodynia Qualified Code(s): R07.81 - Pleurodynia (6) Type 2 diabetes mellitus Code(s): E11.9 - TYPE 2 DIABETES MELLITUS WITHOUT COMPLICATIONS Qualifiers: Diabetes mellitus snf insulin use: without snf use Diabetes mellitus complication status: with kidney complications Diabetes mellitus complication detail: with chronic kidney disease Chronic kidney disease stage: stage 3 (moderate) Qualified Code(s): E11.22 - Type 2 diabetes mellitus with diabetic chronic kidney disease; N18.3 - Chronic kidney disease, stage 3 (moderate) (7) CKD (chronic kidney disease) Code(s): N18.9 - CHRONIC KIDNEY DISEASE, UNSPECIFIED Qualifiers: Chronic kidney disease stage: stage 3 (moderate) Qualified Code(s): N18.3 - Chronic kidney disease, stage 3 (moderate) Assessment/Plan 06/05/2020 Chest CTA: No PE, chronic lung disease w/o CHF or effusions 1. Acute on chronic diastolic heart failure improving 2. Persistent afib on Eliquis 3. Hypertensive heart disease with failure improving 4. Hypothyroidism 5. Hyperlipidemia 6. Type 2 DM 7. CKD likely 8. Hyperuricemia P:1. Resume oral diuresis with monitor diuretic response, renal function and electrolytes 2. Echocardiogram to assess ventricular and valve fxn, TSH, lipid panel, Ha1c reviewed 3. Continue Eliquis 5 bid, Zetia 10 qd, Zocor 20 qhs, losartan 25 qd, Bystolic 20 bid, consider Jardiance pending Ha1c 4. Further CV evaluation as outpatient . Thank you for consultative opportunity
[2020-06-06] MEDS: TIMOLOL MALEATE 0.5% GFS OPHTHALMIC SOLN 5 ML BOTTLE OU SCH (21:01)
[2020-06-07] MEDS: LEVOTHYROXINE NA 25 MCG TABLET (FP) PO SCH (06:31)
[2020-06-07] MEDS: INSULIN SLIDING SCALE (NOVOLOG) 1 VIAL SQ SCH ×2 (06:39→14:58)
[2020-06-07 08:20] LABS: BASO % 0.3 % (0-2.0); EOS % 4.6 % (0-4.5); HEMOGLOBIN 11.9 GM/dl (10.7-15.3); LYMPH % 20.3 % (8-40); MCH 28.3 pg (25.7-33.7); MCHC 31.4 g/dl (32.0-36.0); MEAN CELL VOLUME 90.3 fl (80-96); MEAN PLT VOLUME 8.7 fl (7.5-11.1); MONO % 9.6 % (3.8-10.2); NEUT % 65.2 % (42.8-82.8); PLATELET COUNT 226 K/MM3 (134-434); RBC 4.21 M/mm3 (3.60-5.2); RDW 17.8 % (11.6-15.6); WHITE BLOOD COUNT 6.2 K/mm3 (4.0-10.8)
[2020-06-07 08:24] LABS: ALBUMIN 3.4 g/dl (3.4-5.0); BILIRUBIN,TOTAL 0.7 mg/dl (0.2-1); CALCIUM 9.5 mg/dl (8.5-10); CREATININE 1.7 mg/dl (0.55-1.3); MAGNESIUM 2.1 mg/dL (1.8-2.4); POTASSIUM 4.1 mmol/L (3.5-5.1); TOT PROT 6.1 g/dl (6.4-8.2)
--- NOTE | 2020-06-07 08:38 | PN ---
Progress Note, Physician Chief Complaint: Events noted Not in distress History of Present Illness: Patient was seen and examined. Awake and alert. Chart was reviewed Denies chest pain, SOB or palpitations - Current Medication List Current Medications: Active Medications Allopurinol (Zyloprim -) 100 mg PO DAILY [facility] Last Admin: 06/06/20 09:46 Dose: 100 mg Documented by: Apixaban (Eliquis -) 5 mg PO BID [facility] Last Admin: 06/06/20 21:01 Dose: 5 mg Documented by: Atorvastatin Calcium (Lipitor -) 10 mg PO DAILY [facility] Last Admin: 06/06/20 09:46 Dose: 10 mg Documented by: Docusate Sodium (Colace -) 100 mg PO BID [facility] Last Admin: 06/06/20 21:05 Dose: 100 mg Documented by: Ezetimibe (Zetia -) 10 mg PO DAILY [facility] Last Admin: 06/06/20 09:46 Dose: 10 mg Documented by: Furosemide (Lasix -) 20 mg PO DAILY [facility] Insulin Aspart (Novolog Vial Sliding Scale -) 1 vial SQ [facility]; Protocol Last Admin: 06/07/20 06:39 Dose: Not Given Documented by: Levothyroxine Sodium (Synthroid -) 25 mcg PO AM [facility] Last Admin: 06/07/20 06:31 Dose: 25 mcg Documented by: Losartan Potassium (Cozaar -) 25 mg PO DAILY [facility] Last Admin: 06/06/20 09:46 Dose: 25 mg Documented by: Nebivolol (Bystolic -) 20 mg PO BID [facility] Last Admin: 06/06/20 21:02 Dose: 20 mg Documented by: Pantoprazole Sodium (Protonix -) 40 mg PO DAILY [facility] Last Admin: 06/06/20 09:46 Dose: 40 mg Documented by: Polyethylene Glycol (Miralax (For Daily Use) -) 17 gm PO DAILY [facility] Last Admin: 06/06/20 09:46 Dose: 17 gm Documented by: Timolol Maleate (Timoptic Xe 0.5%) 1 drop OU BID [facility] Last Admin: 06/06/20 21:01 Dose: 1 drp Documented by: - Objective Vital Signs: Vital Signs Temperature 97.8 F 06/07/20 06:00 Pulse Rate 67 06/07/20 06:00 Respiratory Rate 18 06/07/20 06:00 Blood Pressure 112/64 06/07/20 06:00 O2 Sat by Pulse Oximetry (%) 95 06/07/20 06:00 Eyes: Yes: PERRL HENT: Yes: Atraumatic Neck: Yes: Supple Cardiovascular: Yes: Regular Rate and Rhythm, S1, S2. No: Murmur Respiratory: Yes: CTA Bilaterally Gastrointestinal: Yes: Normal Bowel Sounds, Soft. No: Tenderness Edema: No Additional Findings/Remarks: - Review of Systems Constitutional: denies: Chills, Fever Cardiovascular: denies: Chest Pain, Palpitations, Shortness of Breath Respiratory: denies: Cough, Hemoptysis, Orthopnea, PND, SOB, SOB on Exertion Gastrointestinal: denies: Abdominal Pain, Constipation, Diarrhea, Melena, Nausea, Rectal Bleeding, Vomiting Genitourinary: denies Hematuria Musculoskeletal: denies: Back Pain, Joint Pain Neurological: denies: Dizziness, Headache, Seizure, Syncope Labs: CBC, BMP 06/07/20 07:15 06/07/20 07:15 Problem List - Problems (1) Hypercholesterolemia Code(s): E78.00 - PURE HYPERCHOLESTEROLEMIA, UNSPECIFIED (2) Atrial fibrillation Code(s): I48.91 - UNSPECIFIED ATRIAL FIBRILLATION Qualifiers: Atrial fibrillation type: unspecified chronic Qualified Code(s): I48.20 - Chronic atrial fibrillation, unspecified; I48.2 - Chronic atrial fibrillation (3) CHF (congestive heart failure) Code(s): I50.9 - HEART FAILURE, UNSPECIFIED (4) CKD (chronic kidney disease) Code(s): N18.9 - CHRONIC KIDNEY DISEASE, UNSPECIFIED Qualifiers: Chronic kidney disease stage: stage 3 (moderate) Qualified Code(s): N18.3 - Chronic kidney disease, stage 3 (moderate) (5) Hypertensive heart disease Code(s): I11.9 - HYPERTENSIVE HEART DISEASE WITHOUT HEART FAILURE Qualifiers: Heart failure presence: with heart failure Heart failure type: diastolic Heart failure chronicity: acute on chronic Qualified Code(s): I11.0 - Hypertensive heart disease with heart failure; I50.33 - Acute on chronic diastolic (congestive) heart failure (6) Hypothyroidism Code(s): E03.9 - HYPOTHYROIDISM, UNSPECIFIED Qualifiers: Hypothyroidism type: unspecified Qualified Code(s): E03.9 - Hypothyroidism, unspecified (7) Type 2 diabetes mellitus Code(s): E11.9 - TYPE 2 DIABETES MELLITUS WITHOUT COMPLICATIONS Qualifiers: Diabetes mellitus senior care insulin use: without senior care use Diabetes mellitus complication status: with kidney complications Diabetes mellitus complication detail: with chronic kidney disease Chronic kidney disease stage: stage 3 (moderate) Qualified Code(s): E11.22 - Type 2 diabetes mellitus with diabetic chronic kidney disease; N18.3 - Chronic kidney disease, stage 3 (moderate) Assessment/Plan 1. Acute on chronic diastolic heart failure 2. Persistent AF on DOAC/Eliquis 3. Hypertensive heart disease 4. Hypothyroidism 5. Hyperlipidemia 6. Type 2 DM 7. CKD 8. Hyperuricemia PLAN: 1. Oral diuresis (Lasix 20 mg QD) with monitoring renal function and electrolytes 2. Echocardiography to assess LV/RV and valvular function 3. Continue Eliquis 5 mg BID, Zetia 10 mg QD, Atorvastatin 10 nmg QHS, Losartan 25 mg QD and Bystolic 20 mg BID. 4. Further cardiovascular evaluation can be done as outpatient. Follow up with [facility] . Robinson Lawson MD
--- NOTE | 2020-06-07 08:43 | PN ---
Physical Exam: SUBJECTIVE: Patient seen and examined. States feels well, denies chest pain, SOB improved. OBJECTIVE: Vital Signs Period Temp Pulse Resp BP Sys/Dawn Pulse Ox Last 24 Hr 97.8 F-98.7 F 64-67 18-18 87-124/48-64 94-97 GENERAL: The patient is awake, alert, and fully oriented, in no acute distress. HEAD: Normal with no signs of trauma. LUNGS: Breath sounds equal, clear to auscultation bilaterally HEART: Irregular, S1, S2 ABDOMEN: Soft, nontender, nondistended, EXTREMITIES: 2+ pulses, warm, well-perfused, no edema. NEUROLOGICAL: Cranial nerves II through XII grossly intact. Normal speech, gait not observed. Laboratory Results - last 24 hr 06/06/20 06/06/20 06/06/20 06:30 06:30 06:30 WBC 5.8 RBC 4.09 Hgb 11.6 Hct 36.8 MCV 89.9 MCH 28.3 MCHC 31.4 L RDW 17.6 H Plt Count 224 MPV 9.0 Absolute Neuts (auto) 3.7 Neutrophils % 63.1 Lymphocytes % 21.9 Monocytes % 10.7 H Eosinophils % 4.1 Basophils % 0.2 Sodium 142 Potassium 3.9 Chloride 102 Carbon Dioxide 28 Anion Gap 12 BUN 22.0 H Creatinine 1.6 H Est GFR (CKD-EPI)AfAm 33.23 Est GFR (CKD-EPI)NonAf 28.67 POC Glucometer Random Glucose 86 Hemoglobin A1c % 6.5 H Calcium 9.5 Magnesium 2.2 Total Bilirubin AST ALT Alkaline Phosphatase Creatine Kinase 34 Troponin I Total Protein Albumin Triglycerides 76 Cholesterol 110 Total LDL Cholesterol 67 HDL Cholesterol 34 L TSH 0.83 06/06/20 06/06/20 06/06/20 06:30 16:34 20:54 WBC RBC Hgb Hct MCV MCH MCHC RDW Plt Count MPV Absolute Neuts (auto) Neutrophils % Lymphocytes % Monocytes % Eosinophils % Basophils % Sodium Potassium Chloride Carbon Dioxide Anion Gap BUN Creatinine Est GFR (CKD-EPI)AfAm Est GFR (CKD-EPI)NonAf POC Glucometer 155 132 Random Glucose Hemoglobin A1c % Calcium Magnesium Total Bilirubin AST ALT Alkaline Phosphatase Creatine Kinase Troponin I < 0.03 Total Protein Albumin Triglycerides Cholesterol Total LDL Cholesterol HDL Cholesterol TSH 06/07/20 06/07/20 06/07/20 06:28 07:15 07:15 WBC 6.2 RBC 4.21 Hgb 11.9 Hct 38.0 MCV 90.3 MCH 28.3 MCHC 31.4 L RDW 17.8 H Plt Count 226 MPV 8.7 Absolute Neuts (auto) 4.0 Neutrophils % 65.2 Lymphocytes % 20.3 Monocytes % 9.6 Eosinophils % 4.6 H Basophils % 0.3 Sodium 141 Potassium 4.1 Chloride 99 Carbon Dioxide 29 Anion Gap 13 BUN 27.0 H Creatinine 1.7 H Est GFR (CKD-EPI)AfAm 30.89 Est GFR (CKD-EPI)NonAf 26.65 POC Glucometer 98 Random Glucose 110 H Hemoglobin A1c % Calcium 9.5 Magnesium 2.1 Total Bilirubin 0.7 AST 19 ALT 10 L Alkaline Phosphatase 95 Creatine Kinase Troponin I Total Protein 6.1 L Albumin 3.4 Triglycerides Cholesterol Total LDL Cholesterol HDL Cholesterol TSH Active Medications Generic Name Dose Route Start Last Admin Trade Name Freq PRN Reason Stop Dose Admin Allopurinol 100 mg 06/06/20 10:00 06/06/20 09:46 Zyloprim - PO 100 mg DAILY [facility] Administration Apixaban 5 mg 06/05/20 22:00 06/06/20 21:01 Eliquis - PO 5 mg BID [facility] Administration Atorvastatin Calcium 10 mg 06/05/20 17:30 06/06/20 09:46 Lipitor - PO 10 mg DAILY [facility] Administration Docusate Sodium 100 mg 06/06/20 10:00 06/06/20 21:05 Colace - PO 100 mg BID [facility] Administration Ezetimibe 10 mg 06/05/20 17:30 06/06/20 09:46 Zetia - PO 10 mg DAILY [facility] Administration Furosemide 20 mg 06/07/20 10:00 Lasix - PO DAILY [facility] Insulin Aspart 1 vial 06/05/20 22:00 06/07/20 06:39 Novolog Vial Sliding Scale - SQ Not Given ACHS [facility] Protocol Levothyroxine Sodium 25 mcg 06/06/20 07:00 06/07/20 06:31 Synthroid - PO 25 mcg AM [facility] Administration Losartan Potassium 25 mg 06/06/20 10:00 06/06/20 09:46 Cozaar - PO 25 mg DAILY [facility] Administration Nebivolol 20 mg 06/05/20 22:00 06/06/20 21:02 Bystolic - PO 20 mg BID [facility] Administration Pantoprazole Sodium 40 mg 06/06/20 10:00 06/06/20 09:46 Protonix - PO 40 mg DAILY [facility] Administration Polyethylene Glycol 17 gm 06/06/20 10:00 06/06/20 09:46 Miralax (For Daily Use) - PO 17 gm DAILY [facility] Administration Timolol Maleate 1 drop 06/06/20 18:11 06/06/20 21:01 Timoptic Xe 0.5% OU 1 drp BID [facility] Administration PCP: Dr. Dee [phone] ASSESSMENT/PLAN: 89 year-old female with a PMH significant for HTN, HLD, afib on Eliquis, diastolic heart failure, h/o DVT, CKD, hypothyroidism, and Type II NIDDM. Admitted for acute on chronic diastolic heart failure. Acute on chronic diastolic heart failure --seen and evaluated by cardiology today, switch to oral diuresis lasix PO 20mg daily --echocardiogram today to evaluate LVEF and valvular anatomy --pre post --daily weights, strict I&Os Atrial fibrillation --ECG: afib @83bpm --rate-controlled, continue Bystolic --continue Eliquis Hypertension --BP stable --continue losartan, Bystolic Hyperlipidemia --continue atorvastatin Type II NIDDM --Novolog sliding scale coverage Hypothyroidism --TSH wnl --continue current dosing levothyroxine Chronic kidney disease --Cr 1.5 on admission, bump today to 1.7, baseline unknown; continue to monitor COVID --06/05 swab negative FEN Fluids: PO intake adequate Electrolytes: replete as indicated Nutrition: low sodium, diabetic DVT prophylaxis: on Eliquis Physical therapy Dispo: continues to require inpatient care. Full code. Visit type - Emergency Visit Emergency Visit: Yes ED Registration Date: 06/05/20 Care time: The patient presented to the Emergency Department on the above date and was hospitalized for further evaluation of their emergent condition. - New Patient This patient is new to me today: Yes Date on this admission: 06/07/20 - Critical Care Critical Care patient: No - Medication Review Med list reviewed for High Risk Meds patients 65 and older: Yes
[2020-06-07] MEDS: LOSARTAN POTASSIUM 25 MG TABLET PO SCH (09:39)
[2020-06-07] MEDS: NEBIVOLOL 10 MG TABLET (FP) PO SCH (09:39)
[2020-06-07] MEDS: ATORVASTATIN CA 10 MG TABLET (FP) PO SCH (09:39)
[2020-06-07] MEDS: DOCUSATE SODIUM 100 MG CAPSULE (FP) PO SCH (09:39)
[2020-06-07] MEDS: APIXABAN 5 MG TABLET PO SCH (09:39)
[2020-06-07] MEDS: POLYETHYLENE GLYCOL 3350 119 GM BTL PO SCH (09:48)
[2020-06-07] MEDS: PANTOPRAZOLE 20 MG TABLET PO SCH (09:48)
[2020-06-07] MEDS: EZETIMIBE 10 MG TABLET (FP) PO SCH (09:48)
[2020-06-07] MEDS: ALLOPURINOL 100 MG TABLET (FP) PO SCH (09:48)
[2020-06-07] MEDS: TIMOLOL MALEATE 0.5% GFS OPHTHALMIC SOLN 5 ML BOTTLE OU SCH (09:48)
[2020-06-07] MEDS ORDERED: FUROSEMIDE 20 MG TABLET (FP) PO SCH (10:00)
[2020-06-07 14:47] VITALS: BP 121/66; PULSE 71; TEMP 98.2
--- NOTE | 2020-06-07 15:31 | ECHO ---
Name: SRINI BRICE Exam:Adult Echocardiogram Study Date: 06/07/2020 01:59 PM Age: 89 yrs Reason For Study: CHF Height: 61 in Weight: 137 lb BSA: 1.6 m2 MMode/2D Measurements & Calculations IVSd: 0.95 cm Ao root diam: 2.6 cm LVIDd: 4.5 cm LA dimension: 4.3 cm LVIDs: 2.9 cm LVPWd: 0.95 cm EDV(Teich): 93.7 ml LVOT diam: 2.0 cm ESV(Teich): 31.7 ml Doppler Measurements & Calculations MV E max fox: 110.4 cm/sec MV A max fox: 19.4 cm/sec MV dec slope: 648.3 cm/sec2 MV E/A: 5.7 Ao V2 max: 79.8 cm/sec LV V1 max P.9 mmHg Ao max P.5 mmHg LV V1 max: 84.6 cm/sec SANTHOSH(V,D): 3.3 cm2 MR max fox: 440.4 cm/sec TR max fox: 255.2 cm/sec MR max P.6 mmHg TR max P.1 mmHg PA V2 max: 78.5 cm/sec PI end-d fox: 108.6 cm/sec PA max P.5 mmHg Procedure A complete two-dimensional transthoracic echocardiogram was performed (2D, M-mode, Doppler and color flow Doppler). Left Ventricle The left ventricle is normal in size. Left ventricular systolic function is normal. Ejection Fraction = 55- 60%. No regional wall motion abnormalities noted. Right Ventricle The right ventricle is normal size. The right ventricular systolic function is normal. Atria The left atrium is mildly dilated. Right atrial size is normal. Mitral Valve There is mild mitral annular calcification. There is moderate mitral regurgitation. Tricuspid Valve The tricuspid valve is normal in structure and function. There is mild to moderate tricuspid regurgit ation. PASP is at least 32 mmHg if RA pressure is assumed 3 mmHg. Aortic Valve There is mild aortic sclerosis.;. Mild aortic regurgitation. Pulmonic Valve The pulmonic valve is not well visualized. Mild pulmonic valvular regurgitation. Great Vessels The aortic root is normal size. Pericardium/Pleura There is no pericardial effusion. Interpretation Summary The left ventricle is normal in size. Left ventricular systolic function is normal. Ejection Fraction = 55-60%. No regional wall motion abnormalities noted. The right ventricular systolic function is normal. The left atrium is mildly dilated. Right atrial size is normal. There is mild mitral annular calcification. There is moderate mitral regurgitation. There is mild to moderate tricuspid regurgitation. PASP is at least 32 mmHg if RA pressure is assumed 3 mmHg There is mild aortic sclerosis. Mild aortic regurgitation. Mild pulmonic valvular regurgitation. There is no pericardial effusion. Robinson Lawson MD 06/07/2020 03:30 PM
--- NOTE | 2020-06-07 18:30 | EKG ---
Test Reason : Blood Pressure : / mmHG Vent. Rate : 083 BPM Atrial Rate : 064 BPM P-R Int : 000 ms QRS Dur : 112 ms QT Int : 444 ms P-R-T Axes : 000 -32 147 degrees QTc Int : 521 ms ATRIAL FLUTTER WITH VARIABLE BLOCK LEFT AXIS DEVIATION SEPTAL INFARCT , AGE UNDETERMINED PROLONGED QT ABNORMAL ECG NO PREVIOUS ECGS AVAILABLE Confirmed by MARSHAL ABRAHAM MD ([id number]) on 06/07/2020 6:30:00 PM Referred By: SYED MITCHELL Confirmed By:MARSHAL ABRAHAM MD
--- NOTE | 2020-06-07 22:21 | DS ---
Physical Exam: SUBJECTIVE: Patient seen and examined. States feels well, denies chest pain, SOB improved. OBJECTIVE: Vital Signs Period Temp Pulse Resp BP Sys/Dawn Pulse Ox Last 24 Hr 97.8 F-98.2 F 64-71 17-18 101-121/60-66 95-98 PHYSICAL EXAM GENERAL: The patient is awake, alert, and fully oriented, in no acute distress. HEAD: Normal with no signs of trauma. LUNGS: Breath sounds equal, clear to auscultation bilaterally HEART: Irregular, S1, S2 ABDOMEN: Soft, nontender, nondistended, EXTREMITIES: 2+ pulses, warm, well-perfused, no edema. NEUROLOGICAL: Cranial nerves II through XII grossly intact. Normal speech, gait not observed. LABS Laboratory Results - last 24 hr 06/07/20 06/07/20 06/07/20 06:28 07:15 07:15 WBC 6.2 RBC 4.21 Hgb 11.9 Hct 38.0 MCV 90.3 MCH 28.3 MCHC 31.4 L RDW 17.8 H Plt Count 226 MPV 8.7 Absolute Neuts (auto) 4.0 Neutrophils % 65.2 Lymphocytes % 20.3 Monocytes % 9.6 Eosinophils % 4.6 H Basophils % 0.3 Sodium 141 Potassium 4.1 Chloride 99 Carbon Dioxide 29 Anion Gap 13 BUN 27.0 H Creatinine 1.7 H Est GFR (CKD-EPI)AfAm 30.89 Est GFR (CKD-EPI)NonAf 26.65 POC Glucometer 98 Random Glucose 110 H Calcium 9.5 Magnesium 2.1 Total Bilirubin 0.7 AST 19 ALT 10 L Alkaline Phosphatase 95 Total Protein 6.1 L Albumin 3.4 HOSPITAL COURSE: Date of Admission:06/05/20 Date of Discharge: 06/07/20 PCP: Dr. Dee [phone] Pre hospital course 89 year-old female with a past medical history of diastolic congestive heart failure, hypertension, hyperlipidemia, prior history of blood clots hypothyroidism, type II DM, persistent atrial fibrillation (on eliquis) and CKD who presents with symptoms of shortness of breath and right sided pleuritic pain . Pain was described as sharp, right sided, and worse with deep breathing. She reported she has been feeling shortness of breath for the past 2 days.She reported orthopnea. She denied cough, fever, chills, malaise or leg pain or swelling. She recently moved from [place] last month. She has had no known COVID exposure or history of COVID. ER course Elevated BNP(2200)/ Acute Diastolic Congestive Heart Failure Exacerbation -seen by Cardiology and started on IV lasix and diuresing well CXR with mild pulmonary vascular congestion, no effusion, no infiltrate. Chest CTA: no pulmonary embolism, chronic lung disease w/o CHF or effusions Subsequent hospital course 89 year-old female with a PMH significant for HTN, HLD, afib on Eliquis, diastolic heart failure, h/o DVT, CKD, hypothyroidism, and Type II NIDDM. Admitted for acute on chronic diastolic heart failure. Acute on chronic diastolic heart failure --seen and evaluated by cardiology diuresed with PO lasix --06/07 Echo: LV normal, EF 55-60%; RV normal; LAE; moderate MR; mild to moderate TR; mild AI; mild PI --f/u outpatient with cardiology Atrial fibrillation --ECG: afib @83bpm --rate-controlled, continued Bystolic --continued Eliquis Hypertension --BP stable --continued losartan, Bystolic Hyperlipidemia --continued atorvastatin Type II NIDDM --Novolog sliding scale coverage Hypothyroidism --TSH wnl --continued home dosing levothyroxine Chronic kidney disease --Cr 1.5 on admission, bump today to 1.7, baseline unknown COVID --06/05 swab negative Minutes to complete discharge: 35 Discharge Summary Problems reviewed: Yes Reason For Visit: CHEST PAIN/CHF/ATRIAL FIBRILLATION/FLUTTER Condition: Good - Instructions Disposition: HOME - Home Medications Comprehensive Discharge Medication List: Ambulatory Orders Allopurinol [Zyloprim -] 100 mg PO DAILY 06/05/20 Apixaban [Eliquis] 5 mg PO BID 06/05/20 Ezetimibe 10 mg PO DAILY 06/05/20 Furosemide 20 mg PO DAILY 06/05/20 Levothyroxine [Synthroid -] 25 mcg PO DAILY 06/05/20 Linagliptin [Tradjenta] 5 mg PO DAILY 06/05/20 Losartan Potassium 25 mg PO DAILY 06/05/20 Nebivolol HCl [Bystolic] 20 mg PO BID 06/05/20 Pantoprazole Sodium [Protonix -] 40 mg PO DAILY 06/05/20 Simvastatin 20 mg PO DAILY 06/05/20 Timolol Maleate 0.5% Gfs [Timoptic Xe 0.5%] 5 ml OU BID 06/05/20 This patient is new to me today: No Emergency Visit: Yes ED Registration Date: 06/05/20 Care time: The patient presented to the Emergency Department on the above date and was hospitalized for further evaluation of their emergent condition. Critical Care patient: No - Discharge Referral Referred to [facility] No
== END 2020-06-07 17:32 | disposition home or self-care (01) | DRG 291 ==
LOC: FER 12:52 → FM/S 16:25
PROVIDERS: ADMIT Internal Medicine; ATTEND Nurse Practitioner Acute Care
DX: I13.0 Hypertensive heart and chronic kidney disease with heart failure and stage 1 through stage 4 chronic kidney disease, or unspecified chronic kidney disease (principal); I50.33 Acute on chronic diastolic (congestive) heart failure; I48.19 Other persistent atrial fibrillation; E78.5 Hyperlipidemia, unspecified; E11.9 Type 2 diabetes mellitus without complications; E03.9 Hypothyroidism, unspecified; N18.9 Chronic kidney disease, unspecified
CPT/HCPCS: 36415; 71045-TC-FY; 71275-TC; 80048; 80053; 80061; 81003; 82550; 82962; 83036; 83721; 83735; 83880; 84443; 84484; 85025; 87086; 93005; 93306-TC; 99285-25; U0003

== ENCOUNTER 2021-11-02 08:09 | Inpatient (IN) | payer OTHER ==
[2021-11-02] MEDS ORDERED: ALBUTEROL SO4 2.5/IPRATROPIUM 0.5 INH SOL 3 ML VIAL.NEB. NEB ONE ×2 (08:23→08:29)
[2021-11-02 09:03] LABS: ALBUMIN 3.7 g/dl (3.4-5.0); BILIRUBIN,TOTAL 0.9 mg/dl (0.2-1); CALCIUM 9.6 mg/dl (8.5-10); CREATININE 1.7 mg/dl (0.55-1.3); TOT PROT 6.6 g/dl (6.4-8.2)
[2021-11-02 09:16] LABS: INR 1.56 (0.83-1.09); PROTHROMBIN TIME (PATIENT) 17.3 SEC (9.7-13.0)
[2021-11-02 09:23] LABS: BASO % 0.7 % (0-2.0); EOS % 2.6 % (0-4.5); HEMATOCRIT 36.6 % (32.4-45.2); HEMOGLOBIN 11.7 GM/dL (10.7-15.3); LYMPH % 17.5 % (8-40); MCH 30.6 pg (25.7-33.7); MEAN CELL VOLUME 95.5 fl (80-96); MEAN PLT VOLUME 8.9 fl (7.5-11.1); MONO % 6.8 % (3.8-10.2); NEUT % 72.4 % (42.8-82.8); PLATELET COUNT 235 10^3/uL (134-434); RBC 3.84 M/mm3 (3.60-5.2); RDW 16.1 % (11.6-15.6); WHITE BLOOD COUNT 9.7 K/mm3 (4.0-10.0)
[2021-11-02 09:24] LABS: ACTIVATED PTT 33.8 SECONDS (25.2-36.5)
[2021-11-02 09:29] LABS: VENOUS BASE EXCESS -1.3 mmol/L (-2-2); VENOUS O2 SATURATION 89.7 % (70-80); VENOUS PCO2 63.5 mmHg (38-52); VENOUS PH 7.249 (7.310-7.410)
[2021-11-02 09:45] LABS: N-TERMINAL BNP 3858.8 pg/ml (5-450)
[2021-11-02] MEDS ORDERED: FUROSEMIDE 40 MG/4 ML INJECTABLE VIAL IVPUSH ONE ×2 (10:34→18:11)
[2021-11-02] MEDS ORDERED: FUROSEMIDE 40 MG/4 ML INJECTABLE VIAL ONE (10:43)
[2021-11-02 14:25] VITALS: BMI 30.1
[2021-11-02] MEDS: ALBUTEROL SO4 2.5/IPRATROPIUM 0.5 INH SOL 3 ML VIAL.NEB. NEB SCH ×2 (14:51→21:33)
[2021-11-02] MEDS: guaiFENesin 200 MG/10 ML 10 ML UNIT-DOSE CUPS PO PRN (17:41)
[2021-11-02] MEDS: INSULIN (NOVOLOG) ASPART 100 UNITS/ML 10ML VIAL SQ SCH ×2 (17:42→21:40)
[2021-11-02] MEDS: APIXABAN 2.5 MG TABLET PO SCH (21:34)
[2021-11-02] MEDS: NEBIVOLOL 10 MG TABLET (FP) PO SCH (21:36)
[2021-11-02] MEDS ORDERED: APIXABAN 5 MG TABLET PO SCH (22:00)
[2021-11-02] MEDS ORDERED: TIMOLOL MALEATE 0.5% GFS OPHTHALMIC SOLN 5 ML BOTTLE OU SCH (22:00)
[2021-11-03] MEDS: LEVOTHYROXINE NA 25 MCG TABLET (FP) PO SCH (06:14)
[2021-11-03] MEDS: INSULIN (NOVOLOG) ASPART 100 UNITS/ML 10ML VIAL SQ SCH ×4 (06:19→21:53)
[2021-11-03 08:20] LABS: ALBUMIN 3.1 g/dl (3.4-5.0); CREATININE 1.5 mg/dl (0.55-1.3); MAGNESIUM 1.9 mg/dL (1.8-2.4); TOT PROT 5.6 g/dl (6.4-8.2)
[2021-11-03] MEDS: LOSARTAN POTASSIUM 25 MG TABLET PO SCH (09:22)
[2021-11-03] MEDS: ALBUTEROL SO4 2.5/IPRATROPIUM 0.5 INH SOL 3 ML VIAL.NEB. NEB SCH ×3 (09:22→20:52)
[2021-11-03] MEDS: PANTOPRAZOLE 40 MG TABLET PO SCH (09:22)
[2021-11-03] MEDS: EZETIMIBE 10 MG TABLET (FP) PO SCH (09:22)
[2021-11-03] MEDS: NEBIVOLOL 10 MG TABLET (FP) PO SCH ×2 (09:22→21:53)
[2021-11-03] MEDS: APIXABAN 2.5 MG TABLET PO SCH ×2 (09:22→21:53)
[2021-11-03] MEDS: ALLOPURINOL 100 MG TABLET (FP) PO SCH (09:22)
[2021-11-03] MEDS: FUROSEMIDE 40 MG/4 ML INJECTABLE VIAL IVPUSH SCH (09:23)
[2021-11-03 10:16] LABS: BASO % 0.6 % (0-2.0); EOS % 3.6 % (0-4.5); HEMATOCRIT 31.8 % (32.4-45.2); HEMOGLOBIN 10.3 GM/dL (10.7-15.3); LYMPH % 16.1 % (8-40); MCH 30.8 pg (25.7-33.7); MCHC 32.3 g/dl (32.0-36.0); MEAN CELL VOLUME 95.1 fl (80-96); MEAN PLT VOLUME 8.7 fl (7.5-11.1); MONO % 10.5 % (3.8-10.2); NEUT % 69.2 % (42.8-82.8); PLATELET COUNT 176 10^3/uL (134-434); RBC 3.34 M/mm3 (3.60-5.2); RDW 15.8 % (11.6-15.6); WHITE BLOOD COUNT 5.9 K/mm3 (4.0-10.0)
[2021-11-03] MEDS: TIMOLOL MALEATE 0.5% GFS OPHTHALMIC SOLN 5 ML BOTTLE OU SCH ×3 (10:29→21:54)
[2021-11-03] MEDS: guaiFENesin 200 MG/10 ML 10 ML UNIT-DOSE CUPS PO PRN (18:27)
[2021-11-03] MEDS: ATORVASTATIN CA 10 MG TABLET (FP) PO SCH (21:48)
[2021-11-04] MEDS: LEVOTHYROXINE NA 25 MCG TABLET (FP) PO SCH (06:51)
[2021-11-04] MEDS: INSULIN (NOVOLOG) ASPART 100 UNITS/ML 10ML VIAL SQ SCH ×4 (07:12→21:05)
[2021-11-04 08:30] LABS: ALBUMIN 3.2 g/dl (3.4-5.0); BILIRUBIN,TOTAL 1.2 mg/dl (0.2-1); CALCIUM 9.4 mg/dl (8.5-10); CREATININE 1.6 mg/dl (0.55-1.3); TOT PROT 5.7 g/dl (6.4-8.2)
[2021-11-04] MEDS: ALBUTEROL SO4 2.5/IPRATROPIUM 0.5 INH SOL 3 ML VIAL.NEB. NEB SCH ×3 (08:45→21:02)
[2021-11-04] MEDS: guaiFENesin 200 MG/10 ML 10 ML UNIT-DOSE CUPS PO PRN (08:45)
[2021-11-04] MEDS: PANTOPRAZOLE 40 MG TABLET PO SCH (10:06)
[2021-11-04] MEDS: FUROSEMIDE 40 MG/4 ML INJECTABLE VIAL IVPUSH SCH (10:06)
[2021-11-04] MEDS: ALLOPURINOL 100 MG TABLET (FP) PO SCH (10:06)
[2021-11-04] MEDS: APIXABAN 2.5 MG TABLET PO SCH ×2 (10:06→21:05)
[2021-11-04] MEDS: EZETIMIBE 10 MG TABLET (FP) PO SCH (10:08)
[2021-11-04] MEDS: LOSARTAN POTASSIUM 25 MG TABLET PO SCH (10:08)
[2021-11-04] MEDS: NEBIVOLOL 10 MG TABLET (FP) PO SCH ×2 (10:09→21:03)
[2021-11-04] MEDS: TIMOLOL MALEATE 0.5% GFS OPHTHALMIC SOLN 5 ML BOTTLE OU SCH ×2 (10:10→21:16)
[2021-11-04 11:08] LABS: BASO % 0.6 % (0-2.0); EOS % 3.1 % (0-4.5); HEMATOCRIT 33.2 % (32.4-45.2); HEMOGLOBIN 10.6 GM/dL (10.7-15.3); MCH 30.6 pg (25.7-33.7); MEAN CELL VOLUME 95.6 fl (80-96); MEAN PLT VOLUME 9.1 fl (7.5-11.1); MONO % 11.1 % (3.8-10.2); NEUT % 68.2 % (42.8-82.8); PLATELET COUNT 205 10^3/uL (134-434); RBC 3.47 M/mm3 (3.60-5.2); RDW 15.9 % (11.6-15.6); WHITE BLOOD COUNT 6.7 K/mm3 (4.0-10.0)
[2021-11-04] MEDS: ATORVASTATIN CA 10 MG TABLET (FP) PO SCH (21:04)
[2021-11-05] MEDS: guaiFENesin 200 MG/10 ML 10 ML UNIT-DOSE CUPS PO PRN (00:01)
[2021-11-05] MEDS: LEVOTHYROXINE NA 25 MCG TABLET (FP) PO SCH (06:37)
[2021-11-05] MEDS: INSULIN (NOVOLOG) ASPART 100 UNITS/ML 10ML VIAL SQ SCH ×4 (06:37→21:35)
[2021-11-05] MEDS: PANTOPRAZOLE 40 MG TABLET PO SCH (10:53)
[2021-11-05] MEDS: NEBIVOLOL 10 MG TABLET (FP) PO SCH ×2 (10:53→21:35)
[2021-11-05] MEDS: ALBUTEROL SO4 2.5/IPRATROPIUM 0.5 INH SOL 3 ML VIAL.NEB. NEB SCH (10:53)
[2021-11-05] MEDS: EZETIMIBE 10 MG TABLET (FP) PO SCH (10:53)
[2021-11-05] MEDS: FUROSEMIDE 40 MG TABLET (FP) PO SCH (10:54)
[2021-11-05] MEDS: ALLOPURINOL 100 MG TABLET (FP) PO SCH (10:54)
[2021-11-05] MEDS: TIMOLOL MALEATE 0.5% GFS OPHTHALMIC SOLN 5 ML BOTTLE OU SCH ×2 (10:54→21:36)
[2021-11-05] MEDS: APIXABAN 2.5 MG TABLET PO SCH ×2 (10:54→21:32)
[2021-11-05] MEDS: LOSARTAN POTASSIUM 25 MG TABLET PO SCH (10:58)
[2021-11-05] MEDS: ALBUTEROL SO4 2.5/IPRATROPIUM 0.5 INH SOL 3 ML VIAL.NEB. NEB PRN (16:59)
[2021-11-05] MEDS: ATORVASTATIN CA 10 MG TABLET (FP) PO SCH (21:32)
[2021-11-06] MEDS: INSULIN (NOVOLOG) ASPART 100 UNITS/ML 10ML VIAL SQ SCH ×2 (06:29→11:18)
[2021-11-06] MEDS: LEVOTHYROXINE NA 25 MCG TABLET (FP) PO SCH (06:30)
[2021-11-06] MEDS: NEBIVOLOL 10 MG TABLET (FP) PO SCH (09:15)
[2021-11-06] MEDS: ALLOPURINOL 100 MG TABLET (FP) PO SCH (09:54)
[2021-11-06] MEDS: PANTOPRAZOLE 40 MG TABLET PO SCH (09:54)
[2021-11-06] MEDS: FUROSEMIDE 40 MG TABLET (FP) PO SCH (09:54)
[2021-11-06] MEDS: EZETIMIBE 10 MG TABLET (FP) PO SCH (09:54)
[2021-11-06] MEDS: APIXABAN 2.5 MG TABLET PO SCH (09:54)
[2021-11-06] MEDS: ALBUTEROL SO4 2.5/IPRATROPIUM 0.5 INH SOL 3 ML VIAL.NEB. NEB PRN (09:54)
[2021-11-06] MEDS: LOSARTAN POTASSIUM 25 MG TABLET PO SCH (09:55)
[2021-11-06] MEDS: TIMOLOL MALEATE 0.5% GFS OPHTHALMIC SOLN 5 ML BOTTLE OU SCH (09:55)
[2021-11-06 14:03] VITALS: BP 108/38; PULSE 43; TEMP 98.3
== END 2021-11-06 16:35 | disposition home or self-care (01) | DRG 291 ==
LOC: FER 08:09 → FM/S 10:48
PROVIDERS: ADMIT Internal Medicine; ATTEND Nurse Practitioner Family
DX: I13.0 Hypertensive heart and chronic kidney disease with heart failure and stage 1 through stage 4 chronic kidney disease, or unspecified chronic kidney disease (principal); I50.33 Acute on chronic diastolic (congestive) heart failure; J96.02 Acute respiratory failure with hypercapnia; N18.9 Chronic kidney disease, unspecified; E03.9 Hypothyroidism, unspecified; J45.909 Unspecified asthma, uncomplicated; E11.22 Type 2 diabetes mellitus with diabetic chronic kidney disease; I44.7 Left bundle-branch block, unspecified; E79.0 Hyperuricemia without signs of inflammatory arthritis and tophaceous disease; E78.5 Hyperlipidemia, unspecified; I27.20 Pulmonary hypertension, unspecified; I48.0 Paroxysmal atrial fibrillation; Z96.641 Presence of right artificial hip joint; Z96.653 Presence of artificial knee joint, bilateral; Z86.718 Personal history of other venous thrombosis and embolism
CPT/HCPCS: 36415; 71045-TC-FY; 80053; 82803; 82962; 83036; 83735; 83880; 84443; 84484; 85025; 85610; 85730; 93005; 93306-TC; 94640; 97116-GP; 97162-GP; 99285-25; C9803; U0003; U0005